=== PATIENT | female | born 1990 | race Two or more races ===

== ENCOUNTER 2016-09-13 01:48 | Emergency (ER) | payer OTHER ==
[~2016-09-13] VITALS: Ht 167.6 cm; Wt 104.3 kg
[2016-09-13 02:08] VITALS: BP 127/65
--- NOTE | 2016-09-13 02:29 | PHYS DOC ---
Past Medical History Past Medical History: No Pertinent History Past Surgical History: No Surgical History Alcohol Use: None Drug Use: None Adult General Chief Complaint Chief Complaint: DIZZY/LIGHT HEADED HPI HPI 25-year-old female who is approximately 13 weeks to the emergency department date by ultrasound with low back pain and lightheadedness.Onset today. Location generalized. Duration intermittent. No alleviating factors. She denies vaginal bleeding abdominal pain and syncope. She denies polyuria dysuria. It is mildly worse with walking and standing up. Review of systems is negative for chest pain shortness of breath abdominal pain nausea vomiting fevers or chills. All other review of systems is negative unless otherwise noted in history of present illness or elsewhere in the patient 's medical chart. ED course: 25-year-old female presenting to the ER today with lightheadedness and back pain and . Vital signs unremarkable. Physical exam unremarkable. I performed a transabdominal ultrasound which showed an intrauterine with activity and heart rate greater than 140. I recommended the patient follow up with her director of science in one or 2 days. They were to return if their symptoms worsened or if they were concerned for any reason. [id number] discharge instructions and return precautions were given. Patient's questions were answered to their satisfaction. Patient is comfortable plan. Allergies Allergies Allergies Coded Allergies Type Severity Reaction Last Updated Verified No Known Drug Allergies 09/13/16 No Physical Exam Physical Exam Constitutional: Well developed, well nourished, no acute distress, non-toxic appearance. [] HENT: Normocephalic, atraumatic, bilateral external ears normal, oropharynx moist, no oral exudates, nose normal. [] Eyes: PERRLA, EOMI, conjunctiva normal, no discharge. [] Neck: Normal range of motion, no tenderness, supple, no stridor. [] Cardiovascular:Heart rate regular rhythm, no murmur [] Lungs & Thorax: Bilateral breath sounds clear to auscultation [] Abdomen: Bowel sounds normal, soft, no tenderness, no masses, no pulsatile masses. [] Skin: Warm, dry, no erythema, no rash. [] Back: No tenderness, no CVA tenderness. [] Extremities: No tenderness, no cyanosis, no clubbing, ROM intact, no edema. [] Neurologic: Alert and oriented X 3, normal motor function, normal sensory function, no focal deficits noted. [] Psychologic: Affect normal, judgement normal, mood normal. [] Current Patient Data Vital Signs Vital Signs Date Time Temp Pulse Resp B/P (MAP) Pulse Ox O2 Delivery O2 Flow Rate FiO2 09/13/16 02:08 98.2 76 18 127/65 (85) 98 Room Air 98.2 Lab Values Laboratory Tests Test 09/13/16 01:18 POC Urine HCG, Qualitative Hcg positive (Negative) EKG EKG [] Radiology/Procedures Radiology/Procedures [] Course & Med Decision Making Course & Med Decision Making Pertinent Labs and Imaging studies reviewed. (See chart for details) [] Dragon Disclaimer Dragon Disclaimer This electronic medical record was generated, in whole or in part, using a voice recognition dictation system. Departure Departure Impression: Primary Impression: Lightheaded Additional Impression: Low back pain during Disposition: HOME, SELF-CARE Condition: STABLE Referrals: NO PCP (PCP) Patient Instructions: ABCs of , Back Pain in , Dizziness, [id number] Additional Instructions: Thank you for allowing us to participate in your care today. Followup with your director of science in one or 2 days. Call your Primary Doctor tomorrow and inform them of your visit today. If you do not have a primary care provider you can ask for a list of our primary care providers. Return to the emergency department you have any new or concerning findings. This should be evaluated by the primary care physician and any necessary consulting services for continued management within a few days after discharge. Return to emergency room if you have any new or concerning symptoms including but not limited to fever, chills, nausea, vomiting, intractable pain, any new rashes, chest pain, shortness of air, uncontrolled bleeding, difficulty breathing, and/or vision loss. Take Tylenol as needed for low back pain. Problem Qualifiers VARSHA FITZPATRICK MD Sep 13, 2016 02:29
== END 2016-09-13 02:40 | disposition home or self-care (01) ==
LOC: ER 01:48
DX: O26.891 Other specified pregnancy related conditions, first trimester (principal); M54.5 Low back pain; R42 Dizziness and giddiness; Z3A.13 13 weeks gestation of pregnancy
CPT/HCPCS: 81025; 99282; 99284